=== PATIENT | female | born 1970 | race Caucasian/White ===

== ENCOUNTER 2019-03-17 19:34 | Emergency (ER) | payer OTHER ==
[~2019-03-17] VITALS: Ht 172.7 cm; Wt 86.2 kg
--- NOTE | ~2019-03-17 | EKG ---
[place], [place] ELECTROCARDIOGRAM REPORT NAME: KRIS CARUSO UNIT #: [id number] ROOM: DOCTOR: JESUS ALBERTO DRAFT REPORT BIRTHDATE: [birth year] [facility] Test Date: 2019-03-17 Test Time: 20:20:20 Pat Name: KRIS CARUSO Department: Room: Gender: F Field Superintendent: : 1970 Requested By: PEDRITO LEMUS Order Number: [id number] Reading MD: Rosa Dodson MD Measurements Intervals [place] Rate: 82 P: 23 MD: 143 QRS: 9 QRSD: 101 T: 49 QT: 368 QTc: 430 Interpretive Statements Sinus rhythm Baseline wander in lead(s) I,III,aVL Normal ECG Electronically Signed On 03-23-2019 17:49:41 PDT by Rosa Dodson MD CM:EKGRPT:ELECTROCARDIOGRAM REPORT 19 1749 PEDRITO VIERA DRAFT REPORT PEDRITO LEMUS DO
[2019-03-17 20:34] LABS: HEMATOCRIT 33.6 % (37.0-47.0); HEMOGLOBIN 11.1 g/dl (12.0-16.0); MEAN CELL VOLUME 76.2 fl (81.0-99.0); MEAN CORPUSCULAR HGB 25.2 pg (27.0-31.0); MEAN PLATELET VOLUME 11.3 fl (9.6-12.3); PLATELET COUNT AUTOMATED 216 10*3/uL (130-400); RED BLOOD COUNT 4.41 10*6/uL (4.10-5.10); RED CELL DISTRI WIDTH 14.7 % (0-14.5); WHITE BLOOD COUNT 8.6 10*3/uL (4.8-10.8)
[2019-03-17 20:45] LABS: INTERNATIONAL NORM RATIO 1.1 (2.0-3.5)
[2019-03-17 20:50] LABS: ALBUMIN 3.3 gm/dl (3.1-4.5); ALKALINE PHOSPHATASE 141 U/L (45-117); BUN 12 mg/dl (7-24); CHLORIDE 104 mmol/L (98-107); CREATININE 1.01 mg/dL (0.55-1.02); LIPASE 125 U/L (73-393); POTASSIUM 2.8 mmol/L (3.5-5.1); SGOT/AST 102 IU/L (3-35); SGPT/ALT 47 U/L (12-78); SODIUM 133 mmol/L (136-145)
[2019-03-17 20:53] LABS: ETHYL ALCOHOL < 3.0 mg/dl (<3); TROPONIN I < 0.015 ng/ml (<0.045)
[2019-03-17 20:55] LABS: PLATELET SUFFICIENCY NORMAL (NORMAL); TOTAL CELLS COUNTED 100 #CELLS
[2019-03-17 20:57] LABS: MICROCYTOSIS SLIGHT
== END 2019-03-18 02:13 | disposition short-term general hospital (02) ==
LOC: ED 19:34
PROVIDERS: Family Medicine
DX: A41.9 Sepsis, unspecified organism (principal); K52.9 Noninfective gastroenteritis and colitis, unspecified; R10.84 Generalized abdominal pain; F17.200 Nicotine dependence, unspecified, uncomplicated; R11.10 Vomiting, unspecified